=== PATIENT | male | born 1955 | race African-American/Black ===

== ENCOUNTER 2017-05-05 22:18 | Emergency (ER) | payer MEDICARE, MEDICAID ==
[~2017-05-05] VITALS: Ht 172.7 cm; Wt 77.2 kg
[2017-05-05 22:20] VITALS: BP 165/80
== END 2017-05-06 06:00 | disposition left against medical advice (07) ==
LOC: ER 22:18
DX: L29.9 Pruritus, unspecified (principal); R20.2 Paresthesia of skin; Z53.21 Procedure and treatment not carried out due to patient leaving prior to being seen by health care provider

== ENCOUNTER 2020-02-14 14:36 | Emergency (ER) | payer MEDICARE, OTHER ==
[~2020-02-14] VITALS: Ht 170.2 cm; Wt 73.0 kg
[~2020-02-14 14:36] MED LIST: LISI40TA4 PO; [UNRECOGNIZED DRUG - REMARK]
[2020-02-14 15:36] LABS: INR 1.1
[2020-02-14 15:37] LABS: BASOPHILS % 0.2 % (0.0-2.0); EOSINOPHILS % 0.4 % (0.0-5.0); HEMATOCRIT. 34.6 % (42.0-52.0); HEMOGLOBIN. 11.4 g/dL (14.0-18.0); LYMPHOCYTES % 33.5 % (20.0-50.0); MEAN CORPUSCULAR HEMOGLOBIN 26.5 pg (28.0-32.0); MEAN CORPUSCULAR VOLUME 80.8 fL (80.0-94.0); MEAN PLATELET VOLUME 7.2 fl (7.4-10.4); MONOCYTES % 5.2 % (2.0-8.0); NEUTROPHILS % 60.7 % (40.0-76.0); PLATELET 529 x1000/uL (130-400); RED BLOOD CELL COUNT 4.28 mill/uL (4.7-6.1); RED CELL DISTRIBUTION WIDTH 18.6 % (11.6-14.6)
[2020-02-14 15:42] LABS: CHLORIDE 101 mEq/L (98-107)
[2020-02-14] MEDS ORDERED: SODIUM CHLORIDE 0.9% 1,000 ML IV ONE ×2 (16:15→18:00)
[2020-02-14 17:03] LABS: BG BASE EXCESS -4.7 mmol/L (-2.0-2.0); BG CARBOXYHEMOGLOBIN 0.3 % (0.5-1.5); BG DEOXYHEMOGLOBIN 1.9 % (0.0-5.0); BG FRACTION INSPIRED OXYGEN 100; BG METHEMOGLOBIN 0.3 % (0.0-1.5); BG OXYGEN SATURATION 98.1 % (92.0-98.5); BG OXYHEMOGLOBIN 97.5 % (94.0-97.0); BG PH 7.405 (7.350-7.450); BG PO2 112.7 mmHg (75.0-100.0); BG SAMPLE SITE RIGHT RADIAL; BG TOTAL HEMOGLOBIN 12.1 g/dL (12.0-18.0); BG VENT MODE MASK - NRB
[2020-02-14] MEDS ORDERED: EPINEPHRINE 0.1MG/ML (1:10,000) 10ML SYR ONE ×2 (18:10→19:12)
[2020-02-14] MEDS ORDERED: NOREPINEPHRINE 4MG/250ML PMX 250 ML IV ONE (18:30)
[2020-02-14 19:03] VITALS: BP 98/47
== END 2020-02-14 21:00 | disposition expired ==
LOC: ER 14:36 → EDBEDREQ 18:56 → EDBEDREQTM 18:56 → EDBEDREQSVC 18:56 → ER 21:00 → CANBEDREQ 21:02
DX: I46.9 Cardiac arrest, cause unspecified (principal); G93.49 Other encephalopathy; I11.9 Hypertensive heart disease without heart failure; J44.9 Chronic obstructive pulmonary disease, unspecified; Z03.818 Encounter for observation for suspected exposure to other biological agents ruled out; Z79.01 Long term (current) use of anticoagulants
CPT/HCPCS: 31500; 36415; 36556; 36600; 70450; 71045; 80053; 82375; 82805; 82962; 84484; 85025; 85610; 92950; 93005; 96361; 96374; 99285; J3490; J7030